=== PATIENT | male | born 1960 | race Caucasian/White ===

== ENCOUNTER → 2017-03-02 | Outpatient (CLI) | payer BC ==
[2017-03-02 08:57] LABS: CHLORIDE,CL 106 mmol/L (98-110); SODIUM,NA 140 mmol/L (136-146)
== END ==
LOC: MW.CHFP 07:37
PROVIDERS: ATTEND Student in an Organized Health Care Education/Training Program
DX: I10 Essential (primary) hypertension (principal); E78.5 Hyperlipidemia, unspecified; E11.9 Type 2 diabetes mellitus without complications
CPT/HCPCS: 36415; 80053; 80061; 82044; 83036

== ENCOUNTER 2018-05-23 14:44 | Emergency (ER) | payer BC ==
--- NOTE | 2018-05-23 15:27 | EDM.PDOC ---
ED HPI GENERAL MEDICAL PROBLEM - General Chief Complaint: ENT Problem Stated Complaint: COUGHING Time Seen by Provider: 05/23/18 15:25 Source of Information: Reports: Patient History Limitations: Reports: No Limitations - History of Present Illness INITIAL COMMENTS - FREE TEXT/NARRATIVE: HISTORY AND PHYSICAL: History of present illness: Harsh is a 57-year-old male here for cough x 10 days. He states his eyes have been red and draining yellow for 3 days. No pain or visual disturbances. He has a sore throat and sinus pressure, reports he feels drainage down his throat. He denies fevers or chills but states he was clammy this morning. He denies any chest pain, shortness of breath, abdominal pain, nausea, vomiting, diarrhea. Past medical history of hypertension and type 2 diabetes. Denies smoking history , asthma, or COPD. Review of systems: As per history of present illness and below otherwise all systems reviewed and negative. Past medical history: As per history of present illness and as reviewed below otherwise noncontributory. Surgical history: As per history of present illness and as reviewed below otherwise noncontributory. Social history: No reported history of drug or alcohol abuse. Family history: As per history of present illness and as reviewed below otherwise noncontributory. Physical exam: General: patient sitting comfortably in no acute distress. HEENT: Eyes are injected with clear drainage bilaterally. Oropharynx is erythematous without exudate. TMs without bulging or erythema. Atraumatic, normocephalic, pupils reactive, negative for conjunctival pallor or scleral icterus, mucous membranes moist Lungs: Clear to auscultation, breath sounds equal bilaterally, chest nontender. Heart: S1S2, regular, negative for clicks, rubs, or JVD. Extremities: Atraumatic, negative for cords or calf pain. Neurovascular unremarkable. Neuro: Awake, alert, oriented. Cranial nerves II through XII unremarkable. Cerebellum unremarkable. Motor and sensory unremarkable throughout. Exam nonfocal. Notes: Diagnostics: [CBC, CMP, Chest x-ray] Therapeutics: Ventolin inhaler Azithromycin Antibioti eye ointment Impression: Acute bronchitis Acute sinusitis Bacterial conjunctivitis Plan: [#1 Take antibiotic and use inhaler as instructed #2 Follow up with primary care provider #3 Return to emergency department as needed as discussed] Definitive disposition and diagnosis as appropriate pending reevaluation and review of above. throat Pain Score (Numeric/FACES): 6 - Related Data Allergies Allergy/AdvReac Type Severity Reaction Status Date / Time No Known Allergies Allergy Verified 11/20/14 08:21 Home Meds: Home Meds Ascorbic Acid [Vitamin C] 1 tab PO DAILY 08/01/15 [History] Aspirin [Halfprin] 81 mg PO DAILY 08/01/15 [History] Dapagliflozin Propanediol [Farxiga] 10 mg PO DAILY 08/01/15 [History] Insulin Glarg,Human.Rec.Analog [LantUS Solostar] 10 units SUBCUT BEDTIME [History] Losartan Potassium 50 mg PO BID 08/01/15 [History] Ranitidine [Zantac] 1 tab PO DAILY 08/01/15 [History] Tadalafil [Cialis] 1 tab PO ASDIRECTED PRN 08/01/15 [History] atorvaSTATin Calcium [Atorvastatin Calcium] 20 mg PO BEDTIME 08/01/15 [History] predniSONE [Prednisone] 1 tab PO DAILY #1 package 12/23/15 [Rx] Albuterol [Ventolin HFA] 1 puff .XX Q6HR #1 inhaler 05/23/18 [Rx] Azithromycin [Zithromax] 250 mg PO DAILY #1 dosepk 05/23/18 [Rx] Bacitracin/Polymyxin B Sulfate [Bacitracin-Polymyxin Eye Oint] 3.5 gm OP BID #1 oint...g. 05/23/18 [Rx] Past Medical History - Past Health History Medical/Surgical History: Denies Medical/Surgical History Other HEENT History: hx eye muscle surgery as a child Cardiovascular History: Reports: High Cholesterol, Hypertension Other Respiratory History: hx of asthma yrs ago - no problems recently Endocrine/Metabolic History: Reports: Diabetes, Type II - Past Surgical History Musculoskeletal Surgical History: Reports: Knee Replacement Social & Family History - Family History Family Medical History: Noncontributory ED ROS ENT - Review of Systems Review Of Systems: ROS reveals no pertinent complaints other than HPI. ED EXAM, ENT - Physical Exam Exam: See Below (See dictation) Course - Vital Signs Last Recorded V/S: Last Vital Signs Temp 36.4 C 05/23/18 15:24 Pulse 76 05/23/18 15:24 Resp 18 05/23/18 15:24 BP 149/79 H 05/23/18 15:24 Pulse Ox 94 L 05/23/18 15:24 - Orders/Labs/Meds Orders: Active Orders 24 hr Category Date Time Status Chest 2V [CR] Stat Exams 05/23/18 15:25 Taken COMPREHENSIVE METABOLIC PN,CMP [CHEM] Stat Lab 05/23/18 15:34 Received Labs: Laboratory Tests 05/23/18 Range/Units 15:34 WBC 6.64 (4.0-11.0) K/uL RBC 4.86 (4.50-5.90) M/uL Hgb 16.2 (13.0-17.0) g/dL Hct 45.4 (38.0-50.0) % MCV 93.4 (80.0-98.0) fL MCH 33.3 H (27.0-32.0) pg MCHC 35.7 (31.0-37.0) g/dL RDW Std Deviation 43.5 (28.0-62.0) fl RDW Coeff of Dannie 13 (11.0-15.0) % Plt Count 233 (150-400) K/uL MPV 8.90 (7.40-12.00) fL Neut % (Auto) 68.5 (48.0-80.0) % Lymph % (Auto) 19.6 (16.0-40.0) % [place] % (Auto) 9.9 (0.0-15.0) % Eos % (Auto) 1.7 (0.0-7.0) % Baso % (Auto) 0.3 (0.0-1.5) % Neut # (Auto) 4.6 (1.4-5.7) K/uL Lymph # (Auto) 1.3 (0.6-2.4) K/uL [place] # (Auto) 0.7 (0.0-0.8) K/uL Eos # (Auto) 0.1 (0.0-0.7) K/uL Baso # (Auto) 0.0 (0.0-0.1) K/uL Nucleated RBC % 0.0 /100WBC Nucleated RBCs # 0 K/uL Departure - Departure Time of Disposition: 16:01 Disposition: Left Without Being Seen 07 Condition: Good Clinical Impression: Acute bronchitis, Acute sinusitis, Bacterial conjunctivitis - Discharge Information Prescriptions: Albuterol [Ventolin HFA] 1 puff .XX Q6HR #1 inhaler Azithromycin [Zithromax] 250 mg PO DAILY #1 dosepk Referrals: PCP,None [Primary Care Provider] - Forms: ED Department Discharge Additional Instructions: The following information is given to patients seen in the emergency department who are being discharged to home. This information is to outline your options for follow-up care. We provide all patients seen in our emergency department with a follow-up referral. The need for follow-up, as well as the timing and circumstances, are variable depending upon the specifics of your emergency department visit. If you don't have a primary care physician on staff, we will provide you with a referral. We always advise you to contact your personal physician following an emergency department visit to inform them of the circumstance of the visit and for follow-up with them and/or the need for any referrals to a consulting specialist. The emergency department will also refer you to a specialist when appropriate. This referral assures that you have the opportunity for follow-up care with a specialist. All of these measure are taken in an effort to provide you with optimal care, which includes your follow-up. Under all circumstances we always encourage you to contact your private physician who remains a resource for coordinating your care. When calling for follow-up care, please make the office aware that this follow-up is from your recent emergency room visit. If for any reason you are refused follow-up, please contact the [facility] Emergency Department at and asked to speak to the emergency department charge nurse. [facility] [address] [place] [id number] #1 Take antibiotic and use inhaler as instructed #2 Follow up with primary care provider #3 Return to emergency department as needed as discussed - My Orders Last 24 Hours: My Active Orders 05/23/18 15:25 Chest 2V [CR] Stat 05/23/18 15:34 COMPREHENSIVE METABOLIC PN,CMP [CHEM] Stat - Assessment/Plan Last 24 Hours: My Active Orders 05/23/18 15:25 Chest 2V [CR] Stat 05/23/18 15:34 COMPREHENSIVE METABOLIC PN,CMP [CHEM] Stat
[2018-05-23 16:00] LABS: CHLORIDE,CL 102 mmol/L (98-107); SODIUM,NA 138 mmol/L (136-148)
[2018-05-23 16:36] VITALS: BP 143/85
--- NOTE | 2018-05-24 17:45 | CR ---
EXAM DATE: 05/23/18 PATIENT'S AGE: 57 Patient: CHUCKY FAN Facility: [place], [place] Site . Site : 1960 Study: XRay Chest [id number]/15/2018 3:44:56 PM Ordering Physician: Doctor Santiago Final Report: HISTORY: Pain, shortness of breath and cough. COMPARISON: None. FINDINGS: The lungs are clear. Costophrenic angles sharp. Heart size and pulmonary vascularity are within normal limits. Bony thorax intact. Dictated by Petra Villanueva MD @ May 23 2018 3:59PM (Electronic Signature) Report Signed by Proxy. DWIGHT
== END 2018-05-23 16:30 | disposition home or self-care (01) ==
LOC: MW.ED 14:44
DX: J20.9 Acute bronchitis, unspecified (principal); J01.90 Acute sinusitis, unspecified; H10.9 Unspecified conjunctivitis; E78.00 Pure hypercholesterolemia, unspecified; E11.9 Type 2 diabetes mellitus without complications; Z79.82 Long term (current) use of aspirin; Z79.4 Long term (current) use of insulin; Z79.899 Other long term (current) drug therapy
CPT/HCPCS: 36415; 71046; 71046-26; 80053; 85025; 99283

== ENCOUNTER 2019-04-09 21:48 | Emergency (ER) | payer BC ==
[2019-04-09] MEDS ORDERED: Tetracaine HCl/PF 0.5% 4 ML Bottle EYEBOTH ONE (22:09)
--- NOTE | 2019-04-10 00:13 | EDM.PDOC ---
ED HPI GENERAL MEDICAL PROBLEM - General Chief Complaint: Eye Problems Stated Complaint: SOMETHING IN LT EYE Time Seen by Provider: 04/10/19 00:21 Source of Information: Reports: Patient - History of Present Illness INITIAL COMMENTS - FREE TEXT/NARRATIVE: HISTORY AND PHYSICAL: History of present illness: []Patient was grinding metal 2 or 3 days prior has foreign body sensation in his eyes is able see form body in the 3 o'clock position on the iris How which she does have embedded in the cornea on Wood's lamp exam, this was removed with 18-gauge needle without complication I do not see any remnants and fluorescein No fever nausea vomiting chills sweats no visual changes no light sensitivity Review of systems: As per history of present illness and below otherwise all systems reviewed and negative. Past medical history: As per history of present illness and as reviewed below otherwise noncontributory. Surgical history: As per history of present illness and as reviewed below otherwise noncontributory. Social history: No reported history of drug or alcohol abuse. Family history: As per history of present illness and as reviewed below otherwise noncontributory. Physical exam: HEENT: Atraumatic, normocephalic, pupils reactive, negative for conjunctival pallor or scleral icterus, mucous membranes moist, throat clear, neck supple, nontender, trachea midline. Left eye sclera injected embedded metallic body in the 3 o'clock position no hyphema's within normal limits Lungs: Clear to auscultation, breath sounds equal bilaterally, chest nontender. Heart: S1S2, regular, negative for clicks, rubs, or JVD. Abdomen: Soft, nondistended, nontender. Negative for masses or hepatosplenomegaly. Negative for costovertebral tenderness. Pelvis: Stable nontender. Genitourinary: Deferred. Rectal: Deferred. Extremities: Atraumatic, negative for cords or calf pain. Neurovascular unremarkable. Neuro: Awake, alert, oriented. Cranial nerves II through XII unremarkable. Cerebellum unremarkable. Motor and sensory unremarkable throughout. Exam nonfocal. Diagnostics: ['s lamp and fluorescein ] Therapeutics: [Erythromycin ointment ] had tetracaine Impression: [ foreign body removal left eye ] Definitive disposition and diagnosis as appropriate pending reevaluation and review of above. Left Eye Pain Score (Numeric/FACES): 8 - Related Data Allergies Allergy/AdvReac Type Severity Reaction Status Date / Time No Known Allergies Allergy Verified 11/20/14 08:21 Home Meds: Home Meds Aspirin [Halfprin] 81 mg PO DAILY 08/01/15 [History] Insulin Glarg,Human.Rec.Analog [LantUS Solostar] 40 units SUBCUT BEDTIME [History] Losartan Potassium 50 mg PO BID 08/01/15 [History] Tadalafil [Cialis] 1 tab PO ASDIRECTED PRN 08/01/15 [History] atorvaSTATin Calcium [Atorvastatin Calcium] 20 mg PO BEDTIME 08/01/15 [History] Canagliflozin [Invokana] 1 tab PO DAILY 04/09/19 [History] Past Medical History - Past Health History Medical/Surgical History: Denies Medical/Surgical History Other HEENT History: hx eye muscle surgery as a child Cardiovascular History: Reports: High Cholesterol, Hypertension Other Respiratory History: hx of asthma yrs ago - no problems recently Gastrointestinal History: Reports: None Genitourinary History: Reports: Renal Calculus Neurological History: Reports: None Psychiatric History: Reports: None Endocrine/Metabolic History: Reports: Diabetes, Type II Hematologic History: Reports: None Immunologic History: Reports: None Oncologic (Cancer) History: Reports: None Dermatologic History: Reports: None - Infectious Disease History Infectious Disease History: Reports: Chicken Pox, Measles - Past Surgical History Head Surgeries/Procedures: Reports: None Musculoskeletal Surgical History: Reports: Other (See Below) Other Musculoskeletal Surgeries/Procedures:: knee surgery Oncologic Surgical History: Reports: None Social & Family History - Family History Family Medical History: Noncontributory - Tobacco Use Smoking Status *Q: Never Smoker - Caffeine Use Caffeine Use: Reports: Coffee - Recreational Drug Use Recreational Drug Use: No ED ROS GENERAL - Review of Systems Review Of Systems: See Below ED EXAM GENERAL W FULL EYE - Physical Exam Exam: See Below Course - Vital Signs Last Recorded V/S: Last Vital Signs Temp 97.7 F 04/09/19 22:05 Pulse 68 04/09/19 22:05 Resp BP 131/95 H 04/09/19 22:05 Pulse Ox 95 04/09/19 22:05 - Orders/Labs/Meds Meds: Medications Discontinued Medications Generic Name Dose Route Start Last Admin Trade Name Freq PRN Reason Stop Dose Admin Tetracaine HCl 1 ml 04/09/19 22:09 04/09/19 22:38 Tetracaine 0.5% Steri-Unit [place] EYEBOTH 04/09/19 22:10 2 drop ASDIRECTED ONE Administration Departure - Departure Time of Disposition: 00:23 Disposition: Home, Self-Care 01 Condition: Good Clinical Impression: Foreign body - Discharge Information Referrals: PCP,None [Primary Care Provider] - Additional Instructions: Ointment 3 times a day for 5 days If you have Visual change or light sensitivity that persists for more than 48 hours follow-up with ophthalmology on Thursday at [facility] If symptoms persist or worsen in the interim return to the emergency room [address] [id number] The following information is given to patients seen in the emergency department who are being discharged to home. This information is to outline your options for follow-up care. We provide all patients seen in our emergency department with a follow-up referral. The need for follow-up, as well as the timing and circumstances, are variable depending upon the specifics of your emergency department visit. If you don't have a primary care physician on staff, we will provide you with a referral. We always advise you to contact your personal physician following an emergency department visit to inform them of the circumstance of the visit and for follow-up with them and/or the need for any referrals to a consulting specialist. The emergency department will also refer you to a specialist when appropriate. This referral assures that you have the opportunity for follow-up care with a specialist. All of these measure are taken in an effort to provide you with optimal care, which includes your follow-up. Under all circumstances we always encourage you to contact your private physician who remains a resource for coordinating your care. When calling for follow-up care, please make the office aware that this follow-up is from your recent emergency room visit. If for any reason you are refused follow-up, please contact the [facility] emergency department at and asked to speak to the emergency department charge nurse.
[2019-04-10] MEDS ORDERED: Erythromycin Base 0.5% Ophth Oint 1 GM Tube EYEBOTH ONE (00:25)
[2019-04-10 00:36] VITALS: BP 168/100
== END 2019-04-10 00:36 | disposition home or self-care (01) ==
LOC: MW.ED 21:48
DX: T15.92XA Foreign body on external eye, part unspecified, left eye, initial encounter (principal); I10 Essential (primary) hypertension; E78.00 Pure hypercholesterolemia, unspecified; E11.9 Type 2 diabetes mellitus without complications; Z79.4 Long term (current) use of insulin
CPT/HCPCS: 99283; A9270; 65222; 99282

== ENCOUNTER 2021-02-04 19:51 | Emergency (ER) | payer OTHER, BC ==
[2021-02-04] MEDS ORDERED: Ketorolac 15 MG/ML SDV IVPUSH STA (19:59)
[2021-02-04] MEDS ORDERED: Ketorolac 30 MG/ML SDV IM ONE (20:18)
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
--- NOTE | 2021-02-04 21:56 | CR ---
Indication: Pain Technique: Three views Comparison: None Findings: Bones: Alignment is normal. No fractures or bone lesions. Joint spaces: Unremarkable. Soft tissues: Soft tissue swelling. 1 millimeter metal density at the tip of the 4th digit within the subcutaneous tissues consistent with a small radiopaque foreign body. Dictated by Nilson Riley MD @ Feb 04 2021 9:51PM Signed by Dr. Nilson Riley @ Feb 04 2021 9:54PM
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
[2021-02-04 22:33] VITALS: BP 169/83; PULSE 57
== END 2021-02-04 22:30 | disposition home or self-care (01) ==
LOC: MW.ED 19:51
DX: S16.1XXA Strain of muscle, fascia and tendon at neck level, initial encounter (principal); S00.01XA Abrasion of scalp, initial encounter; E78.00 Pure hypercholesterolemia, unspecified; I10 Essential (primary) hypertension; J45.909 Unspecified asthma, uncomplicated; E11.9 Type 2 diabetes mellitus without complications; Z79.82 Long term (current) use of aspirin; Z79.4 Long term (current) use of insulin; Z79.899 Other long term (current) drug therapy; V59.9XXA Occupant (driver) (passenger) of pick-up truck or van injured in unspecified traffic accident, initial encounter
CPT/HCPCS: 70450; 72125; 73140; 96372; 99285; J1885

== ENCOUNTER 2022-08-26 05:41 | Emergency (ER) | payer BC, OTHER ==
[2022-08-26 05:57] VITALS: BP 132/75; PULSE 84
[2022-08-26] MEDS ORDERED: traMADol 50 MG Tab PO ONE (06:48)
[2022-08-26] MEDS ORDERED: Ketorolac 30 MG/ML SDV IM ONE (06:48)
== END 2022-08-26 07:27 | disposition home or self-care (01) ==
LOC: MW.ED 05:41
DX: S46.911A Strain of unspecified muscle, fascia and tendon at shoulder and upper arm level, right arm, initial encounter (principal); I10 Essential (primary) hypertension; E78.00 Pure hypercholesterolemia, unspecified; E11.9 Type 2 diabetes mellitus without complications; Z79.82 Long term (current) use of aspirin; Z79.4 Long term (current) use of insulin; Z79.899 Other long term (current) drug therapy; X50.0XXA Overexertion from strenuous movement or load, initial encounter
CPT/HCPCS: 73030; 96372; 99283; A9270; J1885; 99282

== ENCOUNTER 2022-08-29 06:02 | Emergency (ER) | payer BC ==
[2022-08-29] MEDS ORDERED: HYDROmorphone 1 MG/ML Syringe IM ONE (06:28)
[2022-08-29] MEDS ORDERED: Ketorolac 30 MG/ML SDV IM ONE (06:28)
[2022-08-29] MEDS ORDERED: Ondansetron 4 MG Tab.DIS PO ONE (06:29)
[2022-08-29 06:37] VITALS: BP 109/73; PULSE 68
== END 2022-08-29 07:35 | disposition home or self-care (01) ==
LOC: MW.ED 06:02
DX: S49.81XA Other specified injuries of right shoulder and upper arm, initial encounter (principal); I10 Essential (primary) hypertension; E78.00 Pure hypercholesterolemia, unspecified; E11.9 Type 2 diabetes mellitus without complications; Z79.899 Other long term (current) drug therapy; Z88.8 Allergy status to other drugs, medicaments and biological substances; X50.9XXA Other and unspecified overexertion or strenuous movements or postures, initial encounter
CPT/HCPCS: 96372; 99283; A9270; J1170; J1885